=== PATIENT | female | born 1995 | race Caucasian/White ===

== ENCOUNTER 2016-06-13 20:15 | Emergency (ER) | payer OTHER ==
[~2016-06-13] VITALS: Ht 165.1 cm; Wt 127.3 kg
[2016-06-13 20:23] VITALS: TEMP 98.1
[2016-06-13 23:08] VITALS: BP 118/86; PULSE 80
== END 2016-06-13 23:23 | disposition home or self-care (01) ==
LOC: COL.ER 20:15
DX: S61.412A Laceration without foreign body of left hand, initial encounter (principal); S60.512A Abrasion of left hand, initial encounter; W25.XXXA Contact with sharp glass, initial encounter; Y92.009 Unspecified place in unspecified non-institutional (private) residence as the place of occurrence of the external cause

== ENCOUNTER 2016-06-25 12:50 | Emergency (ER) | payer OTHER ==
[2016-06-25 12:53] VITALS: BP 123/78; PULSE 89; TEMP 97.2
== END 2016-06-25 12:57 | disposition home or self-care (01) ==
LOC: COL.ER 12:50
DX: Z48.02 Encounter for removal of sutures (principal)

== ENCOUNTER 2017-03-03 15:20 | Outpatient (RCR) | payer OTHER | END 2017-03-23 14:13 | disposition still patient (30) | LOC: WSOH 15:20 | DX: T23.162A Burn of first degree of back of left hand, initial encounter (principal); X12.XXXA Contact with other hot fluids, initial encounter; Y92.214 College as the place of occurrence of the external cause; Y99.0 Civilian activity done for income or pay ==

== ENCOUNTER 2017-12-13 11:49 | Emergency (ER) | payer OTHER ==
[~2017-12-13] VITALS: Ht 165.1 cm; Wt 122.7 kg
[2017-12-13 11:53] VITALS: TEMP 97.8
[2017-12-13 12:40] LABS: COLLECTION METHOD CLEAN CATCH
[2017-12-13 13:01] LABS: BASO % 0.3 % (0.0-2.0); EOS % 0.2 % (0-4.0); GRAN # 10.2 (1.4-6.5); GRAN % 84.1 % (42.2-75.2); HEMATOCRIT 39.8 % (37.0-47.0); HEMOGLOBIN 13.6 g/dl (12.5-16.0); LYMPH # 1.3 (1.2-3.4); LYMPH % 10.3 % (20.0-51.0); MEAN CELL VOLUME 85 fl (80.0-100.0); MEAN CORPUSCULAR HEMOGLOBIN 29 pg (27.0-31.0); MEAN CORPUSCULAR HGB CONC 34 g/dl (33.0-37.0); MONO # 0.6 (0.1-0.6); MONO % 4.9 % (1.7-9.3); PLATELET COUNT 349 K/mm3 (130-400); RED BLOOD COUNT 4.66 M/mm3 (4.10-5.30); REDCELL DISTRIBUTION WIDTH-CV 12.7 % (11.5-14.5)
[2017-12-13 13:03] LABS: MUCOUS Present /lpf; PH 6 (5-8); SQUAMOUS EPITHELIAL 0-2 /hpf; URINE APPEARANCE Clear; URINE BACTERIA None Seen /hpf; URINE BILIRUBIN Negative (NEGATIVE); URINE BLOOD Negative (NEGATIVE); URINE COLOR Yellow; URINE GLUCOSE Negative (NEGATIVE); URINE KETONE Trace (NEGATIVE); URINE LEUKOCYTE ESTERASE Negative (NEGATIVE); URINE NITRATE Negative (NEGATIVE); URINE PROTEIN(semi-quant) 1+ (NEGATIVE); URINE RBC 0-2 /hpf
[2017-12-13 13:37] LABS: BILIRUBIN,TOTAL 0.4 mg/dL (0.0-1.0); C-REACTIVE PROTEIN 1.4 mg/dL (0.0-0.9); CALCIUM 9.7 mg/dL (8.4-10.2); CREATININE, serum 0.74 mg/dL (0.52-1.25); POTASSIUM 4.1 mmol/L (3.4-5.0); TOTAL PROTEIN 8.5 gm/dL (6.4-8.2)
[2017-12-13 13:43] LABS: ALBUMIN 4.7 gm/dL (3.5-5.0)
[2017-12-13] MEDS ORDERED: ZOFRAN ODT4 MG PO (15:19)
[2017-12-13] MEDS ORDERED: PERCOCET 325 MG1 TA2 PO (15:19)
[2017-12-13 15:40] VITALS: BP 113/85; PULSE 71
== END 2017-12-13 15:44 | disposition home or self-care (01) ==
LOC: COL.ER 11:49
PROVIDERS: Emergency Medicine
DX: R10.84 Generalized abdominal pain (principal)
CPT/HCPCS: J1170; J1630; J2060; J2405; J3010; J7030; Q9967

== ENCOUNTER 2017-12-17 11:42 | Day surgery (SDC) | payer OTHER ==
[2017-12-17] VITALS (7 sets, daily range): BP systolic 126–138; BP diastolic 70–83; PULSE 75–98; TEMP 97.7–98.1
[~2017-12-17] VITALS: Ht 165.1 cm; Wt 107.7 kg
[~2017-12-17 11:42] MED LIST: PERCOCET 325 MG1 TA2 PO; ZOFRAN ODT4 MG PO
[2017-12-17] MEDS ORDERED: LEXAPRO 10MG10 MG PO (12:23)
[2017-12-17] MEDS ORDERED: VYVANSE50 MG PO (12:23)
[2017-12-17] MEDS ORDERED: PERCOCET 325 MG1 TA2 PO (14:22)
[2017-12-17] MEDS ORDERED: COLACE 100100 MG/CAP PO (14:22)
[2017-12-17] MEDS ORDERED: MOTRIN 600600 MG/TAB PO (14:22)
== END 2017-12-17 16:36 | disposition home or self-care (01) ==
LOC: SDCO 11:42
DX: K80.10 Calculus of gallbladder with chronic cholecystitis without obstruction (principal); K21.9 Gastro-esophageal reflux disease without esophagitis; Z79.899 Other long term (current) drug therapy; F90.9 Attention-deficit hyperactivity disorder, unspecified type; F41.9 Anxiety disorder, unspecified; E66.9 Obesity, unspecified; Z68.39 Body mass index [BMI] 39.0-39.9, adult
CPT/HCPCS: J0690; J1100; J1885; J2250; J2405; J2550; J2704; J2765; J3010; J7120; Q9967